=== PATIENT | female | born 1940 | race Caucasian/White ===

== ENCOUNTER → 2016-04-09 | Outpatient (CLI) | payer MEDICARE, BC ==
[~2016-04-09] MED LIST: ASPIRIN 32325 MG/TAB PO; CALTRATE-600 W600 MG PO; COLACE 100100 MG/CAP PO; DOXYCYCLINE 10100 MG; KEPPRA 500MG500 MG PO; MONODOX100 PO; MULTI VITAMINS1 TAB PO; NIFEREX-150 FOR1 CA1 PO; NORCO 325 MG-51 TAB PO; OSTEO-BI-FLEX 21 TAB PO; TYLENOL 500MG500 MG PO
== END ==
LOC: MC.RAD 08:41
DX: Z12.31 Encounter for screening mammogram for malignant neoplasm of breast (principal); R92.0 Mammographic microcalcification found on diagnostic imaging of breast

== ENCOUNTER → 2017-04-21 | Outpatient (CLI) | payer MEDICARE, BC | LOC: MC.RAD 13:36 | DX: Z12.31 Encounter for screening mammogram for malignant neoplasm of breast (principal) ==

== ENCOUNTER → 2017-10-15 | Outpatient (CLI) | payer MEDICARE, BC | LOC: COL.RAD 13:33 | DX: R59.0 Localized enlarged lymph nodes (principal); N32.89 Other specified disorders of bladder; K57.30 Diverticulosis of large intestine without perforation or abscess without bleeding | CPT/HCPCS: Q9967 ==

== ENCOUNTER 2017-10-19 21:47 | Emergency (ER) | payer MEDICARE, BC ==
[~2017-10-19] VITALS: Ht 157.5 cm; Wt 39.1 kg
[2017-10-19 21:50] VITALS: TEMP 97.8
[2017-10-19 23:08] LABS: BASO # 0.1 (0.0-0.2); BASO % 0.9 % (0.0-2.0); EOS # 0.1 (0.0-0.7); EOS % 1.3 % (0-4.0); GRAN # 4.7 (1.4-6.5); GRAN % 69.1 % (42.2-75.2); HEMOGLOBIN 11.9 g/dl (12.5-16.0); LYMPH # 1.3 (1.2-3.4); LYMPH % 18.8 % (20.0-51.0); MEAN CELL VOLUME 97 fl (80.0-100.0); MEAN CORPUSCULAR HEMOGLOBIN 32 pg (27.0-31.0); MEAN CORPUSCULAR HGB CONC 33 g/dl (33.0-37.0); MEAN PLATELET VOLUME 8.5 fl (7.4-10.4); MONO # 0.6 (0.1-0.6); MONO % 9.3 % (1.7-9.3); PLATELET COUNT 189 K/mm3 (130-400); RED BLOOD COUNT 3.71 M/mm3 (4.10-5.30); REDCELL DISTRIBUTION WIDTH-CV 12.2 % (11.5-14.5)
[2017-10-19 23:09] LABS: HEMATOCRIT 35.9 % (37.0-47.0)
[2017-10-19 23:15] LABS: ALBUMIN 3.7 gm/dL (3.5-5.0); BILIRUBIN,TOTAL 0.3 mg/dL (0.0-1.0); CALCIUM 9.1 mg/dL (8.4-10.2); CREATININE, serum 0.63 mg/dL (0.52-1.25); POTASSIUM 4.1 mmol/L (3.4-5.0); TOTAL PROTEIN 6.7 gm/dL (6.4-8.2)
[2017-10-19 23:31] LABS: COLLECTION METHOD CLEAN CATCH
[2017-10-19 23:41] LABS: AMORPHOUS CRYSTAL Present /uL; MUCOUS Present /lpf; PH 7 (5-8); SQUAMOUS EPITHELIAL None Seen /hpf; URINE APPEARANCE Hazy; URINE BACTERIA Rare /hpf; URINE BILIRUBIN Negative (NEGATIVE); URINE BLOOD Negative (NEGATIVE); URINE COLOR Yellow; URINE GLUCOSE Negative (NEGATIVE); URINE KETONE Negative (NEGATIVE); URINE LEUKOCYTE ESTERASE 2+ (NEGATIVE); URINE NITRATE Negative (NEGATIVE); URINE PROTEIN(semi-quant) Negative (NEGATIVE); URINE UROBILINOGEN Negative (NEGATIVE)
[2017-10-19] MEDS ORDERED: TYLENOL W/COD1 UDTAB PO (23:41)
[2017-10-19] MEDS ORDERED: OMNICEF 300MG300 MG PO (23:49)
[2017-10-20 00:15] VITALS: BP 144/77; PULSE 80
== END 2017-10-20 00:15 | disposition home or self-care (01) ==
LOC: COL.ER 21:47
PROVIDERS: Emergency Medicine
DX: M54.5 Low back pain (principal); Z90.49 Acquired absence of other specified parts of digestive tract; Z90.710 Acquired absence of both cervix and uterus; Z85.72 Personal history of non-Hodgkin lymphomas; Z85.43 Personal history of malignant neoplasm of ovary

== ENCOUNTER 2017-10-27 09:09 | Emergency (ER) | payer MEDICARE, BC ==
[~2017-10-27] VITALS: Ht 157.5 cm; Wt 38.9 kg
[~2017-10-27 09:09] MED LIST changes: +OMNICEF 300MG300 MG PO; +TYLENOL W/COD1 UDTAB PO
[2017-10-27 09:16] VITALS: TEMP 98.2
[2017-10-27 09:56] LABS: COLLECTION METHOD CLEAN CATCH
[2017-10-27 10:03] LABS: BASO % 0.5 % (0.0-2.0); EOS % 0.4 % (0-4.0); GRAN # 6.2 (1.4-6.5); GRAN % 72.7 % (42.2-75.2); HEMATOCRIT 39.5 % (37.0-47.0); HEMOGLOBIN 13.2 g/dl (12.5-16.0); LYMPH # 1.7 (1.2-3.4); LYMPH % 19.3 % (20.0-51.0); MEAN CELL VOLUME 98 fl (80.0-100.0); MEAN CORPUSCULAR HEMOGLOBIN 33 pg (27.0-31.0); MEAN CORPUSCULAR HGB CONC 33 g/dl (33.0-37.0); MEAN PLATELET VOLUME 8.5 fl (7.4-10.4); MONO # 0.6 (0.1-0.6); MONO % 6.7 % (1.7-9.3); PLATELET COUNT 277 K/mm3 (130-400); RED BLOOD COUNT 4.05 M/mm3 (4.10-5.30)
[2017-10-27 10:08] LABS: MUCOUS Present /lpf; PH 8 (5-8); SQUAMOUS EPITHELIAL 0-2 /hpf; URINE APPEARANCE Hazy; URINE BACTERIA None Seen /hpf; URINE BILIRUBIN Negative (NEGATIVE); URINE BLOOD Negative (NEGATIVE); URINE COLOR Yellow; URINE GLUCOSE Negative (NEGATIVE); URINE KETONE Negative (NEGATIVE); URINE LEUKOCYTE ESTERASE Trace (NEGATIVE); URINE NITRATE Negative (NEGATIVE); URINE PROTEIN(semi-quant) Negative (NEGATIVE); URINE RBC 0-2 /hpf; URINE UROBILINOGEN Negative (NEGATIVE)
[2017-10-27 10:18] LABS: ALANINE AMINOTRANSFERASE 28 U/L (9-52); ALBUMIN 4.2 gm/dL (3.5-5.0); ALKALINE PHOSPHATASE 79 U/L (50-136); ANION GAP 11 mmol/L (7-16); AST,SGOT 33 U/L (15-37); BILIRUBIN,TOTAL 0.4 mg/dL (0.0-1.0); BLOOD UREA NITROGEN 12 mg/dL (7-17); CALCIUM 9.2 mg/dL (8.4-10.2); CARBON DIOXIDE 31 mmol/L (22-30); CHLORIDE 96 mmol/L (98-107); CREATININE, serum 0.61 mg/dL (0.52-1.25); GLUCOSE 95 mg/dL (74-106); LIPASE 43 U/L (23-300); MAGNESIUM 1.8 mg/dL (1.6-2.3); POTASSIUM 3.5 mmol/L (3.4-5.0); SODIUM 138 mmol/L (137-145); TOTAL PROTEIN 7.5 gm/dL (6.4-8.2)
[2017-10-27 10:24] LABS: C-REACTIVE PROTEIN < 0.5 mg/dL (0.0-0.9)
[2017-10-27] MEDS ORDERED: NORCO 325 MG-51 TAB PO (11:21)
[2017-10-27 11:56] VITALS: BP 145/75; PULSE 73
== END 2017-10-27 11:57 | disposition home or self-care (01) ==
LOC: COL.ER 09:09
PROVIDERS: Emergency Medicine
DX: C76.3 Malignant neoplasm of pelvis (principal); Z85.72 Personal history of non-Hodgkin lymphomas; Z85.43 Personal history of malignant neoplasm of ovary; Z90.49 Acquired absence of other specified parts of digestive tract; Z90.710 Acquired absence of both cervix and uterus
CPT/HCPCS: J3010; J7030

== ENCOUNTER → 2018-03-28 | Outpatient (CLI) | payer MEDICARE, BC | LOC: COL.RAD 07:27 | DX: C56.2 Malignant neoplasm of left ovary (principal); I08.3 Combined rheumatic disorders of mitral, aortic and tricuspid valves; R91.8 Other nonspecific abnormal finding of lung field; Z95.828 Presence of other vascular implants and grafts; Z90.710 Acquired absence of both cervix and uterus; Z90.49 Acquired absence of other specified parts of digestive tract; Z90.722 Acquired absence of ovaries, bilateral | CPT/HCPCS: Q9967 ==

== ENCOUNTER → 2018-05-31 | Outpatient (CLI) | payer MEDICARE, BC | LOC: MC.RAD 05-13 09:15 | DX: Z12.31 Encounter for screening mammogram for malignant neoplasm of breast (principal) ==

== ENCOUNTER 2019-07-18 21:23 | Emergency (ER) | payer MEDICARE, BC ==
[~2019-07-18] VITALS: Ht 157.5 cm; Wt 48.2 kg
[2019-07-18 21:47] VITALS: TEMP 97.9
[2019-07-18 22:45] LABS: HEMOGLOBIN 11.8 g/dl (12.5-16.0); MEAN CELL VOLUME 105 fl (80.0-100.0); MEAN CORPUSCULAR HEMOGLOBIN 35 pg (27.0-31.0); MEAN CORPUSCULAR HGB CONC 33 g/dl (33.0-37.0); MEAN PLATELET VOLUME 8.6 fl (7.4-10.4); PLATELET COUNT 262 K/mm3 (130-400); RED BLOOD COUNT 3.42 M/mm3 (4.10-5.30); REDCELL DISTRIBUTION WIDTH-CV 13.2 % (11.5-14.5)
[2019-07-18 22:51] LABS: ALBUMIN 3.8 gm/dL (3.5-5.0); BILIRUBIN,TOTAL 0.4 mg/dL (0.0-1.0); CALCIUM 9.6 mg/dL (8.4-10.2); CREATININE, serum 0.71 (0.52-1.25); POTASSIUM 3.6 mmol/L (3.4-5.0); TOTAL PROTEIN 6.8 gm/dL (6.4-8.2)
[2019-07-18 23:24] LABS: BAND 5 % (0-10); LYMPHOCYTE 3 % (20.0-51.0); METAMYELOCYTE 2 % (0-0); NEUTROPHILS 85 % (42.0-75.2); PLATELET ESTIMATE NORMAL (NORMAL)
[2019-07-19 00:34] LABS: COLLECTION METHOD CLEAN CATCH
[2019-07-19 01:11] LABS: MUCOUS Present /lpf; PH 5 (5-8); URINE APPEARANCE Hazy; URINE BACTERIA None Seen /hpf; URINE BILIRUBIN Negative (NEGATIVE); URINE BLOOD Negative (NEGATIVE); URINE COLOR Yellow; URINE GLUCOSE Negative (NEGATIVE); URINE KETONE Trace (NEGATIVE); URINE LEUKOCYTE ESTERASE 2+ (NEGATIVE); URINE NITRATE Negative (NEGATIVE); URINE PROTEIN(semi-quant) 2+ (NEGATIVE)
[2019-07-19 02:30] VITALS: BP 164/101; PULSE 116
== END 2019-07-19 02:30 | disposition home or self-care (01) ==
LOC: COL.ER 21:23
PROVIDERS: Emergency Medicine
DX: R10.9 Unspecified abdominal pain (principal); Z85.43 Personal history of malignant neoplasm of ovary; Z85.05 Personal history of malignant neoplasm of liver
CPT/HCPCS: J2405; J3010; J7030; Q9967